=== PATIENT | female | born 1955 | race Caucasian/White ===

== ENCOUNTER 2021-05-31 16:34 | Emergency (ER) | payer OTHER ==
[~2021-05-31] VITALS: Wt 41.7 kg
[2021-05-31] MEDS ORDERED: VIBRAMYCIN100 MG PO (18:07)
[2021-05-31] MEDS ORDERED: HYDROCODONE-AC1 EAC1 PO (18:07)
[2021-05-31] MEDS ORDERED: SEPTDS PO (18:15)
== END 2021-05-31 18:32 | disposition home or self-care (01) ==
LOC: ED 16:34
DX: L02.415 Cutaneous abscess of right lower limb (principal)

== ENCOUNTER 2021-08-16 16:17 | Emergency (ER) | payer BC ==
[~2021-08-16] VITALS: Wt 34.9 kg
[~2021-08-16 16:17] MED LIST: HYDROCODONE-AC1 EAC1 PO; SEPTDS PO; VIBRAMYCIN100 MG PO
[2021-08-16] MEDS ORDERED: PAROXETINE HCL40 MG PO (16:53)
[2021-08-16] MEDS ORDERED: SIMVASTATIN80 MG PO (16:53)
[2021-08-16] MEDS ORDERED: METOPROLOL SUC100 M1 PO (16:53)
[2021-08-16] MEDS ORDERED: AMLODIPINE BESY10 MG PO (16:53)
[2021-08-16] MEDS ORDERED: HYDROCODONE-AC1 EAC1 PO (20:31)
[2021-08-29] MEDS ORDERED: HYDROCODONE-AC1 EAC1 PO (08:49)
== END 2021-08-17 00:06 | disposition home or self-care (01) ==
LOC: ED 16:17
DX: S52.592A Other fractures of lower end of left radius, initial encounter for closed fracture (principal); S52.692A Other fracture of lower end of left ulna, initial encounter for closed fracture; Z79.899 Other long term (current) drug therapy; W10.8XXA Fall (on) (from) other stairs and steps, initial encounter; Y93.01 Activity, walking, marching and hiking; Y92.89 Other specified places as the place of occurrence of the external cause; Y99.9 Unspecified external cause status

== ENCOUNTER → 2021-08-29 | Day surgery (SDC) | payer BC ==
[2021-08-25 15:33] LABS: BUN 7 mg/dl (7-24); CHLORIDE 103 mmol/L (98-107); CREATININE 0.62 mg/dL (0.55-1.02); POTASSIUM 3.6 mmol/L (3.5-5.1); SODIUM 137 mmol/L (136-145)
[~2021-08-29] VITALS: Ht 157.4 cm; Wt 40.8 kg
[~2021-08-29] MED LIST changes: +AMLODIPINE BESY10 MG PO; +METOPROLOL SUC100 M1 PO; +PAROXETINE HCL40 MG PO; +SIMVASTATIN80 MG PO
[2021-08-29 07:15] VITALS: BP 123/78
[2021-08-29 10:51] VITALS: BP 132/75
[2021-08-29 11:06] VITALS: BP 124/83
[2021-08-29 11:51] VITALS: BP 102/65
== END | disposition home or self-care (01) ==
LOC: SDC 08-25 14:00
PROVIDERS: ATTEND Orthopaedic Surgery
DX: S52.572A Other intraarticular fracture of lower end of left radius, initial encounter for closed fracture (principal); S52.202A Unspecified fracture of shaft of left ulna, initial encounter for closed fracture; I10 Essential (primary) hypertension; F41.9 Anxiety disorder, unspecified; F32.9 Major depressive disorder, single episode, unspecified; F17.210 Nicotine dependence, cigarettes, uncomplicated; J44.9 Chronic obstructive pulmonary disease, unspecified; W01.0XXA Fall on same level from slipping, tripping and stumbling without subsequent striking against object, initial encounter; Y93.89 Activity, other specified; Y92.89 Other specified places as the place of occurrence of the external cause; Y99.8 Other external cause status

== ENCOUNTER → 2021-09-13 | Outpatient (CLI) | payer BC | END | disposition home or self-care (01) | LOC: RAD 11:42 | PROVIDERS: ATTEND Orthopaedic Surgery | DX: S52.572D Other intraarticular fracture of lower end of left radius, subsequent encounter for closed fracture with routine healing (principal); X58.XXXD Exposure to other specified factors, subsequent encounter ==

== ENCOUNTER → 2021-10-10 | Outpatient (CLI) | payer BC | END | disposition home or self-care (01) | LOC: RAD 03:19 | PROVIDERS: ATTEND Orthopaedic Surgery | DX: S52.572D Other intraarticular fracture of lower end of left radius, subsequent encounter for closed fracture with routine healing (principal); X58.XXXD Exposure to other specified factors, subsequent encounter ==

== ENCOUNTER 2022-04-01 02:30 | Emergency (ER) | payer BC ==
[~2022-04-01] VITALS: Wt 31.8 kg
== END 2022-04-01 02:57 ==
LOC: ED 02:30
DX: I46.9 Cardiac arrest, cause unspecified (principal); Z79.899 Other long term (current) drug therapy; Z98.51 Tubal ligation status